=== PATIENT | female | born 1980 | race Caucasian/White ===

== ENCOUNTER → 2016-08-03 | Outpatient (CLI) | payer BC ==
--- NOTE | 2016-08-03 19:24 | US ---
EXAMINATION TYPE: US venous doppler duplex LE RT DATE OF EXAM: 08/03/2016 7:04 PM COMPARISON: on PACS CLINICAL HISTORY: Hx of DVT in left leg, rt palp lump tenderness, off of blood thinners since 2015. SIDE PERFORMED: Right VESSELS IMAGED: External Iliac Vein (EIV) Common Femoral Vein Deep Femoral Vein Greater Saphenous Vein * Femoral Vein Popliteal Vein Small Saphenous Vein * Proximal Calf Veins (* superficial vessels) TECHNOLOGIST IMPRESSION: Right Leg: Appears negative for DVT. Area of palp lump scanned, superficial lesion seen, nonvascula r IMPRESSION: Negative exam. No evidence of deep venous thrombosis in the right leg. There is an oval- shaped benign-appearing hypoechoic area in the subcutaneous area of the calf anteriorly that was the area of palpable lump. The appearance is nonspecific.
== END | disposition home or self-care (01) ==
LOC: RADUSMAIN 18:11
PROVIDERS: ATTEND Physician Assistant
DX: R22.41 Localized swelling, mass and lump, right lower limb (principal)

== ENCOUNTER → 2016-08-19 | Outpatient (CLI) | payer BC ==
[2016-08-19 14:51] LABS: Anisocytosis Slight; CH 16.3; CHCM 26.1; HDW 3.29; HGB 7.3 gm/dL (11.4-16.0); Hypochromasia Marked; MCV 63.2 fL (80.0-100.0); Mean Platelet Volume 7.4; Microcytosis Marked; RBC 4.27 m/uL (3.80-5.40); RDW 18.8 % (11.5-15.5); WBC 5.8 k/uL (3.8-10.6)
[2016-08-19 15:02] LABS: MCHC 26.9 g/dL (31.0-37.0)
[2016-08-21 15:07] LABS: Prothrombin 20210 G/A Mutation Normal Genotype
== END | disposition home or self-care (01) ==
LOC: LABWHC1 14:21
PROVIDERS: ATTEND Obstetrics & Gynecology
DX: D64.9 Anemia, unspecified (principal); I82.409 Acute embolism and thrombosis of unspecified deep veins of unspecified lower extremity
CPT/HCPCS: 36415; 81240; 81241; 81291; 85027

== ENCOUNTER → 2017-09-20 | Outpatient (CLI) | payer BC ==
[2017-09-20 08:45] LABS: Basophils # (A) 0.1 k/uL (0-0.2); Basophils % (A) 1 %; Eosinophils # (A) 0.1 k/uL (0-0.7); Eosinophils % (A) 2 %; HCT 41.3 % (34.0-46.0); HGB 13.2 gm/dL (11.4-16.0); Lymphocytes # (A) 1.2 k/uL (1.0-4.8); Lymphocytes % (A) 19 %; MCH 30.1 pg (25.0-35.0); MCHC 31.9 g/dL (31.0-37.0); MCV 94.3 fL (80.0-100.0); Mean Platelet Volume 7.2; Monocytes # (A) 0.3 k/uL (0-1.0); Monocytes % (A) 5 %; Neutrophils # (A) 4.4 k/uL (1.3-7.7); Neutrophils % (A) 72 %; Platelet Count 229 k/uL (150-450); RBC 4.38 m/uL (3.80-5.40); RDW 12.2 % (11.5-15.5); WBC 6.1 k/uL (3.8-10.6)
== END | disposition home or self-care (01) ==
LOC: LABPAT 06:54
PROVIDERS: ATTEND Obstetrics & Gynecology
DX: Z01.818 Encounter for other preprocedural examination (principal)
CPT/HCPCS: 36415; 85025

== ENCOUNTER 2017-09-24 06:36 | Day surgery (SDC) | payer BC ==
[2017-09-23 10:47] VITALS: BMI 21.2
--- NOTE | 2017-09-23 20:35 | P.HPOB ---
History of Present Illness H&P Date: 09/23/17 Chief Complaint: Family planning This is a 37-year-old female 4 para 3 who presents for laparoscopic bilateral tubal ligation via fulguration for family planning. She also has consented to IUD removal at the same time. She did have some irregular spotting after her cycle in June that lasted almost 2 weeks. Her ultrasound did show the IUD low in the endometrium and also noted a left 3.3 cm simple cyst. She would like the IUD removed but would like permanent sterilization also. She has had a ParaGard IUD since 2012. Obstetrical history: . History of 3 vaginal deliveries and 1 miscarriage. Gynecologic history: No history of sexual transmitted diseases. She is currently using a ParaGard IUD for control but has started to use condoms in addition. Social history: She is . 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 Review of Systems Constitutional: Denies chills, Denies fever Eyes: denies blurred vision, denies pain Ears, nose, mouth and throat: Denies headache, Denies sore throat Cardiovascular: Denies chest pain, Denies shortness of breath Respiratory: Denies cough Gastrointestinal: Denies abdominal pain, Denies diarrhea, Denies nausea, Denies vomiting Genitourinary: Reports dysmenorrhea Menstruation: Reports period heavy Musculoskeletal: Denies myalgias Integumentary: Denies pruritus, Denies rash Neurological: Denies numbness, Denies weakness Psychiatric: Denies anxiety, Denies depression Endocrine: Denies fatigue, Denies weight change Past Medical History Past Medical History: Deep Vein Thrombosis (DVT) Additional Past Medical History / Comment(s): DVT about 18 months ago. History of Any Multi-Drug Resistant Organisms: None Reported Additional Past Surgical History / Comment(s): WISDOM TEETH, LEEP PROCEDURE. Past Anesthesia/Blood Transfusion Reactions: Motion Sickness Past Psychological History: Anxiety Smoking Status: Never smoker Past Alcohol Use History: Occasional Past Drug Use History: None Reported - Past Family History Mother Family Medical History: Cancer Additional Family Medical History / Comment(s): COLON Father Family Medical History: Cancer Additional Family Medical History / Comment(s): COLON Medications and Allergies Home Medications Medication Instructions Recorded Confirmed Type Hair Skin Nail Supp 1 tab PO DAILY 08/05/15 09/23/17 History [place]-3 Fatty Acids/Fish Oil [Fish 1 cap PO DAILY 08/05/15 09/23/17 History Oil 1,000 mg Softgel] Iron(Unknown Dose) 1 tab PO DAILY 09/23/17 09/23/17 History Allergies Allergy/AdvReac Type Severity Reaction Status Date / Time No Known Allergies Allergy Verified 09/23/17 10:33 Exam Osteopathic Statement: *. No significant issues noted on an osteopathic structural exam other than those noted in the History and Physical/Consult. - Vital Signs Vital signs: Intake and Output 09/23/17 09/23/17 09/23/17 06:59 14:59 22:59 Other: Weight 76.204 kg Patient Weight 09/24/17 06:59 Weight 76.204 kg HEENT: Within normal limits Heart: Regular rate and rhythm Lungs: Clear to auscultation bilaterally Abdomen: Soft, nontender Pelvic exam: Uterus is small, retroverted, with no adnexal masses or tenderness palpated. Cervix did show IUD strings visible with no other IUD parts visible. Extremities: Negative Homans Assessment and Plan (1) Family planning Status: Acute Code(s): Z30.09 - ENCOUNTER FOR OT GENERAL CNSL AND ADVICE ON CONTRACEPTION SNOMED Code(s): 250768177 Plan: Proceed with laparoscopic bilateral tubal ligation via fulguration and IUD removal. I have discussed the risks, benefits, and alternative therapies for the above- mentioned procedure and for both sedation/anesthesia as well as necessary blood products administration, if indicated, as they pertain to this patient. The patient has indicated her understanding and acceptance of the risks and procedures discussed.
[~2017-09-24 06:36] MED LIST: DEXAMETHASONE SOD PHOSPHATE 10 MG/ML 1 ML VIAL IV ONE; LACTATED RINGERS 1,000 ML IV SCH; MIDAZOLAM 2 MG/2 ML VIAL IV PRN; MORPHINE SULFATE 4 MG/ML SYRINGE IV PRN; ONDANSETRON 4 MG/2 ML VIAL IVP ONE; Pre Op ABX Message 1 EACH MISC MISCELLANE ONE; SCOPOLAMINE 1.5MG/72HR PATCH TRANSDERM ONE
[2017-09-24] MEDS ORDERED: LIDOCAINE 1% 20 ML VIAL (10MG/ML) FOR IV START INTRADERMA ONE (06:59)
[2017-09-24 07:05] VITALS: TEMP 97.8
[2017-09-24] MEDS ORDERED: NEOSTIGMINE 1 MG/ML 10 ML VIAL ONE (07:25)
[2017-09-24] MEDS ORDERED: MIDAZOLAM 2 MG/2 ML VIAL ONE (07:25)
[2017-09-24] MEDS ORDERED: LIDOCAINE 1% INJ 10MG/ML (20 ML MDV) ONE (07:25)
[2017-09-24] MEDS ORDERED: KETOROLAC 30 MG/ML 1 ML VIAL ONE (07:25)
[2017-09-24] MEDS ORDERED: PROPOFOL 10 MG/ML 20 ML VIAL IV ONE (07:25)
[2017-09-24] MEDS ORDERED: ROCURONIUM BROMIDE 10 MG/ML 10 ML VIAL IV ONE (07:25)
[2017-09-24] MEDS ORDERED: GLYCOPYRROLATE 0.2 MG/ML 2 ML VIAL ONE (07:25)
[2017-09-24] MEDS ORDERED: SUCCINYLCHOLINE CHLORIDE 100 MG/5 ML SYR IV ONE (07:25)
[2017-09-24] MEDS ORDERED: fentaNYL (PF) 50 MCG/ML 2 ML AMP ONE (07:25)
[2017-09-24] MEDS ORDERED: BUPIVACAINE (PF) 0.25% 30 ML VIAL SQ ONE ×2 (07:41→08:03)
--- NOTE | 2017-09-24 08:09 | P.OP ---
Date of Procedure: 09/24/17 Preoperative Diagnosis: Family planning Postoperative Diagnosis: Same Procedure(s) Performed: Laparoscopic bilateral tubal ligation via fulguration and IUD removal Anesthesia: ERNIE Surgeon: Lanette Sheehan Estimated Blood Loss (ml): 25 Pathology: none sent Condition: stable Disposition: same day Indications for Procedure: This is a 37-year-old female 4 para 3 who presents for laparoscopic bilateral tubal ligation via fulguration for family planning. She also has consented to IUD removal at the same time. She did have some irregular spotting after her cycle in June that lasted almost 2 weeks. Her ultrasound did show the IUD low in the endometrium and also noted a left 3.3 cm simple cyst. She would like the IUD removed but would like permanent sterilization also. She has had a ParaGard IUD since 2012. Operative Findings: Uterus is retroverted and sounded to 7-1/2 cm. Upon laparoscopy, uterus does have a bulky appearance with questionable small fibroids in the fundal region. Both ovaries appeared normal with small follicular cysts noted bilaterally. Description of Procedure: The patient is taken to the operating room where she is placed in the dorsal lithotomy position. She is prepped and draped in the normal sterile fashion. Examination is performed under anesthesia. Uterus is found to be in a retroverted position. No adnexal masses were palpated. Next a bivalve speculum was placed in the patient's vagina. IUD strings were visualized and then grasped with a ring forcep and the ParaGard IUD was easily removed and discarded. A single-tooth tenaculum was used to grasp the anterior lip of the cervix. The uterus was sounded to 7.5 cm. the cervix was gently dilated in order to place the manipulator. The kroner uterine manipulator was then inserted through the cervix and the balloon was inflated. The single-tooth tenaculum is removed and speculum was removed gloves were changed and attention was turned to the abdomen. The infraumbilical fold was grasped in transverse fashion with 2 Allis clamps. A small transverse incision was made with a scalpel. A hemostat was used to carry the incision down to the underlying layer of fascia. A towel clip was placed above the umbilicus for retraction. A 11 mm disposable bladeless trocar was then inserted into the peritoneal cavity under direct visualization. Once inside, pneumoperitoneum was achieved with CO2 gas. The insert was removed and the camera was placed. Intraperitoneal placement was confirmed. No bleeding was noted. Next the patient was placed in Trendelenburg position. A small stab incision was made suprapubically and a 5 mm disposable bladeless trocar was inserted into the peritoneal cavity under direct visualization. Once inside pelvic contents were inspected. Next a bipolar Kleppinger instrument was placed through the inferior trocar and the midportion of each tube was brought away from other structures and completely fulgurated on approximate 2-3 cm segment of each tube. Excellent hemostasis was noted. A picture was taken. Pneumoperitoneum was released after the inferior trocar was removed under direct visualization. The upper trocar was then removed. The fascial incision was closed with 0 Vicryl suture in interrupted [id number] stitch. The skin incisions were then closed with 4-0 Vicryl suture in a subcuticular fashion. Next the kroner uterine manipulator was removed. Minimal bleeding was noted. All sponge and needle counts are correct. The patient is then taken to recovery room in stable condition.
[2017-09-24 10:24] VITALS: BP 101/57; RESP 16
[2017-09-24 10:44] VITALS: PULSE 54
== END 2017-09-24 10:51 | disposition home or self-care (01) ==
LOC: OR 06:36
PROVIDERS: ATTEND Obstetrics & Gynecology
DX: Z30.2 Encounter for sterilization (principal); Z30.432 Encounter for removal of intrauterine contraceptive device; F41.9 Anxiety disorder, unspecified; Z86.718 Personal history of other venous thrombosis and embolism
CPT/HCPCS: 81025; 58670; J2250; J2270; J1100; J2710; J2405; J2001; J3010; J1885; J0330; J2704

== ENCOUNTER → 2018-04-22 | Outpatient (CLI) | payer BC ==
--- NOTE | 2018-04-25 11:01 | MM ---
Reason for exam: screening (asymptomatic). Last mammogram was performed 5 years and 1 month ago. Physical Findings: A clinical breast exam by your physician is recommended on an annual basis and results should be correlated with mammographic findings. MG Screening Mammo w CAD Bilateral CC and MLO view(s) were taken. Prior study comparison: March 23, 2013, [facility] DIGITAL LEFT BREAST MAMMOGRAM w/CAD. March 14, 2013, bilateral digital screening mammo w/CAD. There are scattered fibroglandular densities. No suspicious abnormality. No significant changes when compared with prior studies. ASSESSMENT: Negative, BI-RAD 1 RECOMMENDATION: Routine screening mammogram of both breasts in 1 year.
== END | disposition home or self-care (01) ==
LOC: RADMAMWWP 14:56
PROVIDERS: ATTEND Obstetrics & Gynecology
DX: Z12.31 Encounter for screening mammogram for malignant neoplasm of breast (principal)
CPT/HCPCS: 77067

== ENCOUNTER → 2018-08-24 | Outpatient (CLI) | payer BC ==
--- NOTE | 2018-08-24 18:35 | CONS ---
CONSULTATION DATE OF SERVICE: 08/24/2018 38-year-old lady has been evaluated in Sleep Center for possible obstructive sleep apnea-hypopnea syndrome and for significant excessive daytime sleepiness. HISTORY OF PRESENT ILLNESS/SLEEP-WAKE EVALUATION: SLEEP SCHEDULE: Patient's usual sleep schedule on working days from 10 p.m. to 6 a.m. On weekends from midnight until 8 a.m. FALLING ASLEEP: Sometimes she has problem with falling asleep, although no TV in bedroom. DURING SLEEP: She usually sleeps on the back position with snoring and witnessed by her episodes of stopped breathing during the sleep. She wakes up from sleep up to 4 times with 1 episode of nocturia and has history of awakenings with dry mouth, grinding teeth, restless legs and sleep talking. DURING THE DAY/SLEEP WAKE EVALUATION: During the day, she usually takes naps after coming back from work around 5 p.m. and sometimes while closing her eyes while falling asleep she may started to see to some pictures, possible hypnogogical hallucinations, one episode when she was not able to move, but was able to talk after awakenings from sleep. The patient does feel weakness in her knees, buckling knees when she is laughing. Possible cataplexy. No history of falling. During the day, patient feels tired and sleepy, worry about his sleep, has problems with memory, concentration, irritability, depression, anxiety, claustrophobia. PAST MEDICAL HISTORY: Basically negative. Left leg DVT 2 years ago. PAST SURGICAL HISTORY: Several colonoscopies, LEEP procedure, breast biopsy with benign results. MEDICATIONS: Phentermine. SOCIAL HISTORY: Negative for smoking. Alcohol consumption very rarely. FAMILY HISTORY: Hypercholesterolemia, arthritis, sinus problems, snoring, cancer, diabetes, restless legs. REVIEW OF SYSTEMS: Sleepiness during the day, weakness as a reaction on laugh, possible cataplexy. PHYSICAL EXAM: lady without distress. BP 119/77, HR 78, RR 16, height 5 feet 2 1/2 inches, weight 159, body mass index 28.6, temperature 98.1, oxygen saturation at room air 98%, oropharynx low position of soft palate. Overbite 2 mm. Neck Supple, no JVD. Thyroid is not palpable. LUNGS Clear to percussion and to auscultation. Good air exchange. No wheezing or rhonchi. HEART S1, S2 regular. No murmurs, gallops, or rubs. ABDOMEN: Soft and nontender. Bowel sounds are present. No organomegaly appreciated. EXTREMITIES No clubbing or cyanosis. 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 Cranial nerves 2 to 7 intact. There is no fasciculation or atrophy. noted. No focal deficits observed. IMPRESSION: 1. Snoring, witnessed episodes of stopped breathing during the sleep. Low position of soft palate, sleepiness, possible obstructive sleep apnea-hypopnea syndrome. 2. Positive history of hypnagogic hallucination, sleepiness patient take naps in afternoon. Positive history of cataplexy. Differential diagnosis include narcolepsy with cataplexy. 3. Status post left leg deep vein thrombosis 2 years ago. 4. Recent memory problems and concentration problems. PLAN: 1. Polysomnography for evaluation of patient's breathing during sleep. 2. CPAP/BiPAP titration if sleep study confirms obstructive sleep apnea-hypopnea syndrome. 3. Preferable position during sleep on the side. 4. No driving if patient feels any sleepiness. 5. I will see patient for follow up visit to explain results of testing and following plan. 6. Multiple sleep latency test if the sleep study will be negative for obstructive sleep apnea-hypopnea syndrome for objective evaluation of patient symptoms of excessive daytime sleepiness and check for sleep onset REM period. Thank you very much for referring this patient for consultation. Sincerely, Eduardo Robertson MD, PhD, FAASM Diplomat of [place] [employer] Specialties [place] [employer] [facility] [place] MMODL / IJN: [id number] /
== END ==
LOC: SLEEP 16:24
PROVIDERS: ATTEND Internal Medicine
DX: R06.83 Snoring (principal); I82.402 Acute embolism and thrombosis of unspecified deep veins of left lower extremity; Z99.89 Dependence on other enabling machines and devices; Z79.899 Other long term (current) drug therapy
CPT/HCPCS: 99211

== ENCOUNTER → 2018-12-15 | Outpatient (CLI) | payer BC ==
--- NOTE | 2018-12-15 15:48 | SFUN ---
SLEEP CENTER FOLLOW UP NOTE DATE OF SERVICE: 12/15/2018 A 38-year-old lady who has been followed in the Sleep Center to discuss results of the sleep study and following plan. I discussed results of sleep study with the patient in detail. Diagnostic sleep study did not show any significant respiratory abnormalities during the sleep. Normal oxygenation during the night, lowest oxygen level during the sleep was 91.6%, which is absolutely perfect. No periodic limb movements have been documented. The patient slept for 5 hours and 51 minutes during the test. On the full-length day, she had multiple sleep latency test which showed borderline sleep latency for 10.4 minutes with 1 sleep onset REM. But 1 sleep onset REM. Documented in first nap which was at 8:23 am. Subsequently, I believe this REM could be part of the normal distribution of the REM stage and noted an indication of possible narcolepsy. Patient trying to have a good sleep schedule. Presently she sleeps from around 10 p.m. to 6 a.m. on working days and on weekends, she goes to bed later and sometimes makes her more sleepy on Wednesday. [place] Sleepiness Scale today is 8, which is in normal range. PHYSICAL EXAM: Patient in no distress. BP 107/62, HR 70, RR 16, weight 156 pounds, height 5 foot, 2- 1/2 inches. OROPHARYNX: Moderately low soft palate, overbite. Neck Supple, no JVD. Thyroid is not palpable. LUNGS Clear to percussion and to auscultation. Good air exchange. No wheezing or rhonchi. HEART S1, S2 regular. No murmurs, gallops, or rubs. ABDOMEN Soft and nontender. Bowel sounds are present. No organomegaly appreciated. EXTREMITIES No clubbing or cyanosis. 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 Cranial nerves 2 to 7 intact. There is no fasciculation or atrophy. noted. No focal deficits observed. IMPRESSION: 1. Normal respiration during the sleep. Normal oxygenation during the sleep. 2. No periodic limb movements have been documented. 3. Multiple sleep latency test showed sleep latency more than 10 minutes, which is borderline but on the previous night, the patient slept less than 6 hours which also could be the reason for some shortening of sleep latency. 4. Multiple sleep latency test excluded narcolepsy. Mean sleep latency for narcolepsy should be less than 8 minutes. 5. Status post left leg deep venous thrombosis 2 years ago. 6. Recent memory problems and concentration problem. PLAN: 1. Sleep hygiene with regular time in bed for 9 hours. 2. Watching weight. 3. Extreme precautions to driving. No driving if feeling sleepiness. 4. Followup visit if patient will continue to have symptoms of excessive daytime sleepiness. Thank you very much for allowing me to participate in the management of your patient. Sincerely, Eduardo Robertson MD, PhD, FAASM Diplomat of [place] [employer] [place] [employer] [place] [facility] [place] MMODL / IJN: [id number] /
== END ==
LOC: SLEEP 14:27
PROVIDERS: ATTEND Internal Medicine
DX: Z09 Encounter for follow-up examination after completed treatment for conditions other than malignant neoplasm (principal); R41.3 Other amnesia; Z86.718 Personal history of other venous thrombosis and embolism

== ENCOUNTER → 2019-08-28 | Outpatient (CLI) | payer BC ==
--- NOTE | 2019-08-29 10:45 | MM ---
Reason for exam: screening (asymptomatic). Last mammogram was performed 1 year and 4 months ago. Physical Findings: A clinical breast exam by your physician is recommended on an annual basis and results should be correlated with mammographic findings. MG Screening Mammo w CAD Bilateral CC and MLO view(s) were taken. Prior study comparison: April 22, 2018, bilateral MG screening mammo w CAD. March 23, 2013, [facility] DIGITAL LEFT BREAST MAMMOGRAM w/CAD. The breast tissue is heterogeneously dense. This may lower the sensitivity of mammography. There is no discrete abnormality. No significant changes when compared with prior studies. ASSESSMENT: Negative, BI-RAD 1 RECOMMENDATION: Routine screening mammogram of both breasts in 1 year.
== END | disposition home or self-care (01) ==
LOC: RADMAMWWP 17:01
PROVIDERS: ATTEND Obstetrics & Gynecology
DX: Z12.31 Encounter for screening mammogram for malignant neoplasm of breast (principal)
CPT/HCPCS: 77067

== ENCOUNTER 2020-10-25 10:06 | Day surgery (SDC) | payer BC ==
[2020-10-22 17:17] VITALS: BMI 27.8
[~2020-10-25 10:06] MED LIST changes: -DEXAMETHASONE SOD PHOSPHATE 10 MG/ML 1 ML VIAL IV ONE; -MIDAZOLAM 2 MG/2 ML VIAL IV PRN; -MORPHINE SULFATE 4 MG/ML SYRINGE IV PRN; -ONDANSETRON 4 MG/2 ML VIAL IVP ONE; -Pre Op ABX Message 1 EACH MISC MISCELLANE ONE; -SCOPOLAMINE 1.5MG/72HR PATCH TRANSDERM ONE
[2020-10-25 10:27] VITALS: TEMP 98
[2020-10-25] MEDS ORDERED: fentaNYL (PF) 50 MCG/ML 2 ML AMP ONE (10:37)
[2020-10-25] MEDS ORDERED: PROPOFOL 10 MG/ML 20 ML VIAL IV ONE (10:37)
[2020-10-25] MEDS ORDERED: MIDAZOLAM 2 MG/2 ML VIAL ONE (10:37)
--- NOTE | 2020-10-25 10:51 | P.PCN ---
Date of Procedure: 10/25/20 Procedure(s) Performed: BRIEF HISTORY: Patient is a 40-year-old pleasant female scheduled for an elective colonoscopy as a part of screening for colorectal neoplasia. She has strong family history of colon cancer diagnosed in her mother at age 43 and her father at age 50. MATERNAL GRANDMOTHER WAS DIAGNOSED with colon cancer at age 18. HER LAST COLONOSCOPY WAS 3 YEARS AGO. PROCEDURE PERFORMED: Colonoscopy. PREOPERATIVE DIAGNOSIS: Screening for colon cancer/strong family history of colon cancer. IV sedation per Anesthesia. PROCEDURE: After informed consent was obtained, the patient, was brought into the endoscopy unit. IV sedation was administered by Anesthesia under continuous monitoring. Digital rectal examination was normal. Initially the Olympus CF-160 flexible video colonoscope was then inserted in the rectum, gradually advanced into the cecum without any difficulty. Careful examination was performed as the scope was gradually being withdrawn. Ileocecal valve and the appendiceal orifice were visualized and appeared normal. Prep was excellent. Mucosa of the cecum, ascending colon, transverse colon, descending colon, sigmoid colon, and rectum appeared normal. Retroflexion was performed in the rectum and no lesions were seen. The patient tolerated the procedure well. IMPRESSION: Normal-appearing colon from rectum to cecum with no evidence of colorectal neoplasia . RECOMMENDATIONS: Findings of this examination were discussed with the patient as well as a family. She was advised to have a repeat screening colonoscopy in 3 years because of the strong family history of colon cancer.
[2020-10-25 10:55] VITALS: RESP 16
[2020-10-25 11:25] VITALS: BP 110/68; PULSE 59
== END 2020-10-25 11:52 | disposition home or self-care (01) ==
LOC: ORWHC2ENDO 10:06
PROVIDERS: ATTEND Internal Medicine Gastroenterology
DX: Z12.11 Encounter for screening for malignant neoplasm of colon (principal); Z80.0 Family history of malignant neoplasm of digestive organs; D64.9 Anemia, unspecified
CPT/HCPCS: 81025; 45378; J2250; J3010; J2704

== ENCOUNTER → 2020-10-29 | Outpatient (CLI) | payer BC ==
--- NOTE | 2020-10-30 11:43 | MM ---
Reason for exam: screening (asymptomatic). Last mammogram was performed 1 year and 2 months ago. Physical Findings: A clinical breast exam by your physician is recommended on an annual basis and results should be correlated with mammographic findings. MG Screening Mammo w CAD Bilateral CC and MLO view(s) were taken. Prior study comparison: August 28, 2019, bilateral MG screening mammo w CAD. April 22, 2018, bilateral MG screening mammo w CAD. There are scattered fibroglandular densities. Finding: There are typically benign round, grouped/clustered calcifications in the left breast. There is no discrete abnormality. ASSESSMENT: Benign, BI-RAD 2 RECOMMENDATION: Routine screening mammogram of both breasts in 1 year.
== END | disposition home or self-care (01) ==
LOC: RADMAMWWP 09:57
PROVIDERS: ATTEND Obstetrics & Gynecology
DX: Z12.31 Encounter for screening mammogram for malignant neoplasm of breast (principal)
CPT/HCPCS: 77067

== ENCOUNTER → 2022-07-30 | Outpatient (CLI) | payer BC ==
--- NOTE | 2022-07-31 07:47 | MM ---
Reason for Exam: Screening (asymptomatic). Last mammogram was performed 1 year(s) and 9 month(s) ago. Patient History: Menarche at age 10. First Full-Term at age 14. Patient has history of breast feeding. Maternal cousin had breast cancer, age 44. Risk Values: Mary Kay 5 year model risk: 0.6%. NCI Lifetime model risk: 7.1%. Prior Study Comparison: 04/22/2018 Bilateral Screening Mammogram, [facility]. 08/28/2019 Bilateral Screening Mammogram, [facility]. 10/29/2020 Bilateral Screening Mammogram, [facility]. Tissue Density: There are scattered fibroglandular densities. Findings: Analyzed By CAD. There is no suspicious group of microcalcifications or new suspicious mass in either breast. Overall Assessment: Negative, BI-RAD 1 Management: Screening Mammogram of both breasts in 1 year. A clinical breast exam by your physician is recommended on an annual basis and results should be correlated with mammographic findings. Electronically signed and approved by: Lucio Lopez D.O.
== END | disposition home or self-care (01) ==
LOC: RADMAMWWP 07:23
PROVIDERS: ATTEND Obstetrics & Gynecology
DX: Z12.31 Encounter for screening mammogram for malignant neoplasm of breast (principal); Z80.3 Family history of malignant neoplasm of breast
CPT/HCPCS: 77067

== ENCOUNTER 2024-03-31 11:42 | Day surgery (SDC) | payer BC ==
[2024-03-31] MEDS: IV FLUID CONTINUATION 1,000 ML IV ONE (12:37)
[2024-03-31 12:50] VITALS: TEMP 97.8
[2024-03-31] MEDS ORDERED: PROPOFOL 10 MG/ML 20 ML VIAL IV ONE (13:39)
--- NOTE | 2024-03-31 13:52 | P.PCN ---
Date of Procedure: 03/31/24 Procedure(s) Performed: BRIEF HISTORY: Patient is a 44-year-old pleasant white female scheduled for an elective colonoscopy as a part of screening for colon cancer. Her mother was diagnosed with colon cancer at age 43 and father at age 50. PROCEDURE PERFORMED: Colonoscopy. PREOPERATIVE DIAGNOSIS: Screening for colon cancer and strong family history of colon cancer. IV sedation per Anesthesia. PROCEDURE: After informed consent was obtained, the patient, was brought into the endoscopy unit. IV sedation was administered by Anesthesia under continuous monitoring. Digital rectal examination was normal. Initially the Olympus CF-160 flexible video colonoscope was then inserted in the rectum, gradually advanced into the cecum without any difficulty. Careful examination was performed as the scope was gradually being withdrawn. Ileocecal valve and the appendiceal orifice were visualized and appeared normal. Prep was fair. Mucosa of the cecum, ascending colon, transverse colon, descending colon, sigmoid colon, and rectum appeared normal. Retroflexion was performed in the rectum and no lesions were seen. The patient tolerated the procedure well. IMPRESSION: Normal-appearing colon from rectum to cecum no evidence of colorectal neoplasia. RECOMMENDATIONS: Findings of this examination were discussed with the patient as well as her family. She was advised to have repeat screening colonoscopy in 3 years because of the family history of colon cancer
[2024-03-31 14:13] VITALS: BP 119/86; PULSE 63; RESP 15
== END 2024-03-31 14:42 | disposition home or self-care (01) ==
LOC: ORWHC2ENDO 11:42
PROVIDERS: ATTEND Internal Medicine Gastroenterology
DX: Z12.11 Encounter for screening for malignant neoplasm of colon (principal); F41.8 Other specified anxiety disorders; Z80.0 Family history of malignant neoplasm of digestive organs; Z79.899 Other long term (current) drug therapy
CPT/HCPCS: 81025; J2704; G0105; 45378

== ENCOUNTER → 2024-09-28 | Outpatient (CLI) | payer BC ==
--- NOTE | 2024-09-29 07:19 | MM ---
Reason for Exam: Screening (asymptomatic). Last mammogram was performed 2 year(s) and 2 month(s) ago. Patient History: Menarche at age 10. First Full-Term at age 14. Patient has history of breast feeding. Maternal cousin had breast cancer, age 44. Risk Values: Mary Kay 5 year model risk: 0.6%. NCI Lifetime model risk: 6.9%. Prior Study Comparison: 08/28/2019 Bilateral Screening Mammogram, [facility]. 10/29/2020 Bilateral Screening Mammogram, [facility]. 07/30/2022 Bilateral MG screening mammo w CAD, [facility]. Tissue Density: There are scattered areas of fibroglandular density. Findings: Analyzed By CAD. There is no suspicious group of microcalcifications or new suspicious mass in either breast. Overall Assessment: Negative, BI-RAD 1 Management: Screening Mammogram of both breasts in 1 year. . Patient should continue monthly self-breast exams. A clinical breast exam by your physician is recommended on an annual basis. This exam should not preclude additional follow-up of suspicious palpable abnormalities. Note on Mary Kay scores and lifetime risk: 1. A Mary Kay score greater than 3% is considered moderate risk. If this is the case, consider specialist referral to assess eligibility for a risk reducing agent. 2. If overall lifetime risk for the development of breast cancer is 20% or higher, the patient may qualify for future screening with alternating mammogram and breast MRI. [facility], , 09/29/2024 7:13 AM. Electronically signed and approved by: Amandeep Lieberman M.D. Radiologis
== END | disposition home or self-care (01) ==
LOC: RADMAMWWP 15:51
PROVIDERS: ATTEND Family Medicine
DX: Z12.31 Encounter for screening mammogram for malignant neoplasm of breast (principal); R92.323 Mammographic fibroglandular density, bilateral breasts; Z80.3 Family history of malignant neoplasm of breast
CPT/HCPCS: 77067

== ENCOUNTER → 2024-11-02 | Outpatient (CLI) | payer BC ==
--- NOTE | 2024-11-03 08:37 | MR ---
INDICATION: Patient age:Female; 44 years old; Reason for study: M54.2; [facility]. COMPARISON: None. TECHNIQUE: Multi planar, multi sequence imaging was performed of the cervical spine. No Gadolinium wa s given. FINDINGS: Alignment: The cervical vertebral bodies have preserved heights. Alignment is within normal limits gi mattie patient positioning. Bones: No significant abnormality. Cord: The spinal cord is unremarkable with regards to their signal intensity and morphology. Discs: Multilevel disc desiccation is present. C2-C3: No significant disc pathology. The spinal canal is patent. No neural foraminal stenosis. C3-C4: Central disc protrusion with minimal effacement of the anterior thecal sac. No significant cindy tral canal stenosis. No neural foraminal stenosis. C4-C5: Minimal broad-based disc bulge. Minimal effacement of the anterior thecal sac. No significant central canal stenosis. No neural foraminal stenosis. C5-C6: Broad-based disc bulge with mild effacement of the anterior thecal sac with close approximatio n of the anterior spinal cord. Mild central canal stenosis. No neural foraminal stenosis. C6-C7: No significant disc pathology. The spinal canal is patent. No neural foraminal stenosis. C7-T1: No significant disc pathology. The spinal canal is patent. No neural foraminal stenosis. Other: None. 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 Most pronounced at C5-C6 with mild central c anal stenosis secondary to disc bulge. [facility], , 11/03/2024 8:35 AM
== END | disposition home or self-care (01) ==
LOC: RADMRIMAIN 21:00
PROVIDERS: ATTEND Psychiatry & Neurology Neurology
DX: M50.31 Other cervical disc degeneration, high cervical region (principal); M48.02 Spinal stenosis, cervical region
CPT/HCPCS: 72141